=== PATIENT | female | born 1975 | race Caucasian/White ===

== ENCOUNTER → 2021-01-07 | Outpatient (CLI) | payer MEDICAID ==
--- NOTE | 2021-01-08 11:39 | MM ---
Reason for exam: screening (asymptomatic). Last mammogram was performed 6 years and 6 months ago. History: Patient has history of other cancer at age 45. Family history of breast cancer in maternal grandmother at age 72. Reductions of both breasts, 2015. Physical Findings: A clinical breast exam by your physician is recommended on an annual basis and results should be correlated with mammographic findings. MG 3D Screening Mammo W/Cad Bilateral CC and MLO view(s) were taken. Prior study comparison: July 07, 2014, mammogram, performed at [facility]. July 02, 2014, mammogram, performed at [facility]. The breast tissue is heterogeneously dense. This may lower the sensitivity of mammography. No significant changes when compared with prior studies. ASSESSMENT: Benign, BI-RAD 2 RECOMMENDATION: Routine screening mammogram of both breasts in 1 year.
== END | disposition home or self-care (01) ==
LOC: RADMAMWWP 15:07
PROVIDERS: ATTEND Family Medicine
DX: Z12.31 Encounter for screening mammogram for malignant neoplasm of breast (principal); Z80.3 Family history of malignant neoplasm of breast
CPT/HCPCS: 77063; 77067

== ENCOUNTER → 2021-06-17 | Outpatient (CLI) | payer MEDICAID ==
--- NOTE | 2021-06-17 20:50 | CONS ---
CONSULTATION DATE OF SERVICE: 06/17/2021 This 46-year-old lady has been evaluated in the sleep center for possible obstructive sleep apnea-hypopnea syndrome. HISTORY OF PRESENT ILLNESS/SLEEP-WAKE EVALUATION: Patient's usual sleep schedule is from 9 p.m. until 5 or 5:20 a.m. on weekdays and on weekends from 10 or 11 p.m. until 7 or 8 a.m. No problems with falling asleep, although patient has a TV set in the bedroom. She usually sleeps on the back position. According to her , she has loud snoring and witnessed episodes of stopped breathing during sleep. She grinds her teeth, wakes up with a dry mouth, heartburn, restless legs, sweating, up to 3 times and with one episode of nocturia. No history of hypnagogic hallucinations, sleep paralysis or cataplexy. In the morning the patient wakes up tired, has problems with concentration, irritability, sexual dysfunction. [place] Sleepiness Scale is 8. Usually the patient does not take any naps. PAST MEDICAL HISTORY: Positive for acid reflux, nasal septum deviation, possibly nasal polyps, heart murmur in childhood. PAST SURGICAL HISTORY: Two C-sections, breast reduction surgery. MEDICATIONS: Vitamins, ibuprofen. SOCIAL HISTORY: Quit smoking 16 years ago. Alcohol consumption occasional. FAMILY HISTORY: Hypertension, cancer, narcolepsy. REVIEW OF SYSTEMS: Multiple awakenings from sleep. No fevers. No double vision. No recent chest pain. No shortness of breath. No abdominal pain. No bleeding episodes. No blood in the urine. No seizure episodes. PHYSICAL EXAMINATION: GENERAL: Pleasant lady without distress. VITAL SIGNS: BP 133/88, HR 79, RR 16, height 5 feet 3-1/2 inches, weight 209.4 pounds, body mass index 36.4, temperature , oxygen saturation at room air 98%. HEENT: PERRLA, EOMI, evaluation of oropharynx showed tongue protrudes midline. Extremely low position of soft palate; Mallampati IV. NECK: Supple, no JVD. Thyroid is not palpable. Neck is wide, 16-3/4 inches in circumference. LUNGS: Clear to percussion and to auscultation. Good air exchange. No wheezing or rhonchi. HEART: S1, S2 regular. No murmurs, gallops, or rubs. ABDOMEN: Obese. EXTREMITIES: No clubbing or cyanosis. WIRELESS TELEGRAPHER: Awake, alert, and oriented X3. Cranial nerves 2 to 7 intact. There is no fasciculation or atrophy. noted. No focal deficits observed. IMPRESSION: 1. Loud snoring, witnessed episodes of stopped breathing during sleep, extremely low position of soft palate, Mallampati IV, wide neck, 16-3/4 inches in circumference; obstructive sleep apnea-hypopnea syndrome. 2. Obesity. BMI 36.4. 3. Acid reflux. 4. History of nasal polyps. 5. History of nasal septum deviation. 6. History of heart murmur in childhood. 7. Status post two sections. 8. Status post breast reduction surgery. PLAN: 1. Polysomnography for evaluation of patient's breathing during sleep. 2. CPAP/BiPAP titration if sleep study confirms obstructive sleep apnea-hypopnea syndrome. 3. Preferable position during sleep on the side. 4. No driving if patient feels any sleepiness. 5. I will see patient for follow up visit to explain results of testing and following plan. Thank you very much for referring this patient for consultation. Sincerely, Harry Sanchez MD, PhD, FAASM Diplomat of [employer] Sleep Medicine Board of [employer] Feather Edger of [facility] [place] MMODL / OKSANA: [id number] /
== END ==
LOC: SLEEP 16:04
PROVIDERS: ATTEND Internal Medicine
DX: G47.33 Obstructive sleep apnea (adult) (pediatric) (principal); E66.9 Obesity, unspecified; K21.9 Gastro-esophageal reflux disease without esophagitis; Z87.09 Personal history of other diseases of the respiratory system; Z86.79 Personal history of other diseases of the circulatory system; Z87.59 Personal history of other complications of pregnancy, childbirth and the puerperium; Z68.36 Body mass index [BMI] 36.0-36.9, adult; Z98.890 Other specified postprocedural states; Z87.891 Personal history of nicotine dependence
CPT/HCPCS: 99211

== ENCOUNTER → 2021-09-16 | Outpatient (CLI) | payer MEDICAID ==
--- NOTE | 2021-09-16 16:41 | SFUN ---
SLEEP CENTER FOLLOW UP NOTE DATE OF SERVICE: 09/16/2021 This 46-year-old lady has been followed in Sleep Center for treatment of obstructive sleep apnea-hypopnea syndrome. Recently the patient had a polysomnogram which showed severe obstructive sleep apnea- hypopnea syndrome with severe oxygen desaturation. Then she had CPAP titration and subsequently received her CPAP unit. Today is her first visit after she was started on treatment with CPAP. The patient is able to use her CPAP equipment every night. She sleeps better with the machine, feels better during the day. [place] Sleepiness Scale today is 4, which is normal. I checked her CPAP unit. It is in automatic regimen. Range of the pressure is 5 to 10, average pressure 10 cm of water. Usage is 100% of nights and 28/30 nights for more than 4 hours. Average usage 7 hours 15 minutes, which is great compliance. Leak is 0.5 L/minute, maximum 4.5 L/minute, which is in very good range. Apnea-hypopnea index is still increased at 18.2. MEDICATIONS: Vitamins, Motrin. PHYSICAL EXAMINATION: GENERAL: Pleasant patient in no distress. VITAL SIGNS: BP 144/61, HR 82, RR 16, weight 208, temperature 98.2, oxygen saturation at room air 98%. HEENT: PERRLA, EOMI, evaluation of oropharynx showed tongue protrudes midline. Extremely low position of soft palate; Mallampati IV. NECK: Supple, no JVD. Thyroid is not palpable. LUNGS: Clear to percussion and to auscultation. Good air exchange. No wheezing or rhonchi. HEART: S1, S2 regular. No murmurs, gallops, or rubs. ABDOMEN: Obese. EXTREMITIES: No clubbing or cyanosis. PROFESSIONAL SERVICES MANAGER: Awake, alert, and oriented X3. Cranial nerves 2 to 7 intact. There is no fasciculation or atrophy. noted. No focal deficits observed. IMPRESSION: 1. Severe obstructive sleep apnea-hypopnea syndrome; apnea-hypopnea index 50.5 with oxygen desaturation to 77%. Patient demonstrated good compliance with treatment. Respiration improved on CPAP, but not normalized. Present apnea-hypopnea index 18.2. 2. Obesity. 3. Acid reflux. 4. History of nasal polyps. 5. History of nasal septum deviation. 6. History of heart murmur in childhood. 7. Status post C-sections x2. 8. Status post breast reduction surgery. PLAN: 1. I changed the pressure in the machine to the range of pressure 5 to 15 cm of water. 2. I discussed with the patient some details related to position of the machine, position of the tube, adjustments of humidification. 3. Losing weight. 4. Sleep hygiene with regular time in bed for 7-1/2 to 8 hours. 5. No driving if feeling any sleepiness. 6. Follow-up visit in 2 or 3 months to evaluate clinical response after pressure was adjusted. Thank you very much for allowing me to participate in the management of your patient. Sincerely, Harry Sanchez MD, PhD, FAASM Diplomat of [employer] Sleep Medicine Board of [employer] Medicine Flame Brazing Machine Operator of [facility] [place] MMZINAL / OKSANA: [id number] /
== END ==
LOC: SLEEP 14:15
PROVIDERS: ATTEND Internal Medicine
DX: G47.33 Obstructive sleep apnea (adult) (pediatric) (principal); G47.36 Sleep related hypoventilation in conditions classified elsewhere; E66.9 Obesity, unspecified; K21.9 Gastro-esophageal reflux disease without esophagitis; Z99.89 Dependence on other enabling machines and devices; Z87.59 Personal history of other complications of pregnancy, childbirth and the puerperium; Z86.79 Personal history of other diseases of the circulatory system; Z87.09 Personal history of other diseases of the respiratory system; Z87.891 Personal history of nicotine dependence

== ENCOUNTER → 2021-11-10 | Outpatient (CLI) | payer MEDICAID ==
--- NOTE | 2021-11-11 14:42 | SFUN ---
SLEEP CENTER FOLLOW UP NOTE DATE OF SERVICE: 11/10/2021 This 46-year-old lady has been followed in Sleep Center for treatment of obstructive sleep apnea-hypopnea syndrome. The patient continues to use her CPAP equipment every night for the whole night. During her previous visit, because apnea-hypopnea index was significantly increased to 18.2, I changed the regimen of pressure in the machine from 5-10 to 5-15 cm of water. I checked the CPAP unit. Usage is 100% of nights, average 7 hours 8 minutes. Range of the pressure is 5-15 cm of water, average pressure 14.8 cm of water, close to maximum. Apnea-hypopnea index was reduced to 12.9, but still above normal range. Leak is only 1.9 L/minute. [place] Sleepiness Scale is 6. MEDICATIONS: Vitamins, Motrin as needed. PHYSICAL EXAMINATION: GENERAL: Pleasant patient in no distress. VITAL SIGNS: BP 125/82, HR 75, RR 16, weight 212 pounds, temperature 97.1, oxygen saturation at room air 97%. HEENT: PERRLA, EOMI, evaluation of oropharynx showed tongue protrudes midline. Extremely low position of soft palate; Mallampati IV. NECK: Supple, no JVD. Thyroid is not palpable. LUNGS: Clear to percussion and to auscultation. Good air exchange. No wheezing or rhonchi. HEART: S1, S2 regular. No murmurs, gallops, or rubs. ABDOMEN: Soft and nontender. Bowel sounds are present. No organomegaly appreciated. EXTREMITIES: No clubbing or cyanosis. HR INTERNSHIP: Awake, alert, and oriented X3. Cranial nerves 2 to 7 intact. There is no fasciculation or atrophy. noted. No focal deficits observed. IMPRESSION: 1. Severe obstructive sleep apnea-hypopnea syndrome; apnea-hypopnea index 50.5. The patient demonstrated 100% compliance with treatment. Respiration improved after pressure was increased, but still above normal range. 2. Obesity. 3. Acid reflux. 4. History of nasal polyps. 5. History of nasal septum deviation. 6. History of heart murmur in childhood. 7. Status post x2. 8. Status post breast reduction surgery. PLAN: 1. I changed pressure to the range 5-20 cm of water. 2. Patient will continue to use PAP equipment every night for the whole night. 3. Sleep hygiene with regular time in bed for at least 7-1/2 to 8 hours. 4. Precautions related to driving. No driving if feeling sleepiness. 5. I will maintain all necessary prescription for PAP supplies including mask, tube, filters. 6. Watching weight. 7. Follow-up visit in 2 months or earlier if patient has any problems. Thank you very much for allowing me to participate in the management of your patient. Sincerely, Harry Sanchez MD, PhD, FAASM Diplomat of [place] [employer] Sleep Medicine Board of [place] [employer] Medicine Lease Out Man of [facility] [place] MMODL / [place]AN: [id number] /
== END ==
LOC: SLEEP 16:19
PROVIDERS: ATTEND Internal Medicine
DX: G47.33 Obstructive sleep apnea (adult) (pediatric) (principal); E66.9 Obesity, unspecified; K21.9 Gastro-esophageal reflux disease without esophagitis; Z87.09 Personal history of other diseases of the respiratory system; Z86.79 Personal history of other diseases of the circulatory system; Z98.890 Other specified postprocedural states; Z99.89 Dependence on other enabling machines and devices; Z87.891 Personal history of nicotine dependence

== ENCOUNTER → 2022-01-18 | Outpatient (CLI) | payer MEDICAID ==
--- NOTE | 2022-01-18 16:42 | US ---
EXAMINATION TYPE: US venous doppler duplex LE LT DATE OF EXAM: 01/18/2022 4:27 PM COMPARISON: NONE CLINICAL HISTORY: R22.42 SWELLING LT LOWER LIMB. Swelling left leg SIDE PERFORMED: Left TECHNIQUE: The lower extremity deep venous system is examined utilizing real time linear array sonog tonio with graded compression, doppler sonography and color-flow sonography. VESSELS IMAGED: Common Femoral Vein Deep Femoral Vein Greater Saphenous Vein * Femoral Vein Popliteal Vein Small Saphenous Vein * Proximal Calf Veins (* superficial vessels) Left Leg: Negative for DVT Attempted to call office with results at time of exam, no answer IMPRESSION: Negative exam. No evidence of deep vein thrombosis in the left leg.
== END | disposition home or self-care (01) ==
LOC: RADUSWWP 16:10
PROVIDERS: ATTEND Family Medicine
DX: R22.42 Localized swelling, mass and lump, left lower limb (principal)

== ENCOUNTER → 2022-02-02 | Outpatient (CLI) | payer MEDICAID ==
--- NOTE | 2022-02-02 16:20 | P.PN ---
Subjective DATE: 02/02/2022 FOLLOW UP VISIT. Patient with obstructive sleep apnea hypopnea syndrome return to sleep center for follow-up visit. Information from previous visit have been reviewed. Patient is using PAP equipment every night for the whole night, getting PAP supplies in time. The patient does not have significant problems with the mask, PAP unit and humidification. [place] sleepiness scale is 5, which is normal. I checked information from PAP unit. PAP unit pressure 5-15, average 11.9 cm H2O. Usage is 100 % for more then 4 hours, average 7.6 hours per night. Leak is 2.5 l/m, which is in acceptable range. Apnea Hypopnea Index is 2.1, which is normal. MEDICATIONS:1. Vitamins 2. Probiotic 3. Motrin as needed During physical exam: GENERAL: A pleasant patient without any distress. VITAL SIGNS: BP 129/68, HR 74, RR 16, weight 217.4, temperature 97.4, oxygen saturation at room air 99 % . HEENT: PERRLA, EOMI.low position of soft palate, Mallapati 4 . NECK: Supple. No JVD. LUNGS: Clear to percussion and to auscultation. Good air exchange. No wheezing or rhonchi. HEART: S1, S2 regular. ABDOMEN: Soft and nontender. Slightly obese EXTREMITIES: No clubbing or cyanosis. BLOW MOLD TECHNICIAN: Awake, alert, and oriented x3. No focal deficit. Impressions: 1. Obstructive sleep apnea-hypopnea syndrome. Patient demonstrated great compliance with treatment, benefiting from treatment. After correction of pressure during previous visit and using different type of mask respiration is totally normal on CPAP. 2. Obesity. 3. Acid reflux. 4. History of nasal polyps. 5. History of nasal septum deviation. 6. History of heart murmur in childhood. 7. Status post 2. 8. Status post breast reduction surgery. Plan: 1. Continue using PAP equipment every night for the whole night. 2. To change air filter at least 1-2 times per month. 3. PAP unit should stay lower then position of the head. 4. Advised patient to remove all remaining water from humidifier canister daily and make it dry after each usage. Refill canister with fresh distilled water before each usage. 5. Sleep hygiene with regular time in bed for at least 8 hours. 6. Precautions related to driving. No driving if feel any sleepiness. 7. I will maintain prescription for PAP supplies including mask, tube, filters. 8. Follow up visit in 6 months or earlier if patient has any problems. 9. Watching weight. Thank you very much for allowing me to participate in the management of your patient. Harry Sanchez MD, PhD, FAASM. Diplomat of [employer], Sleep Medicine Board by [employer] Internal [employer] Publications Production Supervisor of [facility] [place]
== END ==
LOC: SLEEP 15:55
PROVIDERS: ATTEND Internal Medicine
DX: G47.33 Obstructive sleep apnea (adult) (pediatric) (principal); E66.9 Obesity, unspecified; K21.9 Gastro-esophageal reflux disease without esophagitis; Z99.89 Dependence on other enabling machines and devices; Z86.79 Personal history of other diseases of the circulatory system; Z98.890 Other specified postprocedural states; Z87.59 Personal history of other complications of pregnancy, childbirth and the puerperium; Z87.09 Personal history of other diseases of the respiratory system; Z87.891 Personal history of nicotine dependence
CPT/HCPCS: 99212

== ENCOUNTER → 2022-10-13 | Outpatient (CLI) | payer MEDICAID ==
--- NOTE | 2022-10-13 16:53 | P.PN ---
Subjective DATE: 10/13/2022 FOLLOW UP VISIT. Patient with obstructive sleep apnea hypopnea syndrome return to sleep center for follow-up visit. Information from previous visit have been reviewed. Patient is using PAP equipment every night for the whole night, getting PAP supplies in time. The patient does not have significant problems with the mask, PAP unit and humidification. [place] sleepiness scale is 5, which is normal. I checked information from PAP unit and explaining to the patient in details. PAP unit pressure 5-15, average 10.1 cm H2O. Usage is 100 % for more then 4 hours, average 7.7 hours per night. Leak is 0.4 l/m, which is in acceptable range. Apnea Hypopnea Index is 2.4, which is normal. MEDICATIONS: None During physical exam: GENERAL: A pleasant patient without any distress. VITAL SIGNS: BP 136/82, HR 92, RR 12, weight 206.4, temperature 97.2, oxygen saturation at room air 96 % . HEENT: PERRLA, EOMI.low position of soft palate, Mallapati 4 . NECK: Supple. No JVD. LUNGS: Clear to percussion and to auscultation. Good air exchange. No wheezing or rhonchi. HEART: S1, S2 regular. ABDOMEN: Soft and nontender.[] EXTREMITIES: No clubbing or cyanosis. PLANER MILL GRADER: Awake, alert, and oriented x3. No focal deficit. Impressions: 1. Obstructive sleep apnea-hypopnea syndrome. Patient demonstrated great compliance with treatment, benefiting from treatment. 2. Mild obesity, body mass and 35.6, patient lost 11 pounds since previous visit. 3. Acid reflux. 4. History of nasal polyps. 5. History of nasal septum deviation. 6. Status post started to. 7. History of heart murmur in childhood. 8. Status post breast reduction surgery. Plan: 1. Continue using PAP equipment every night for the whole night. 2. To change air filter at least 1-2 times per month. 3. PAP unit should stay lower then position of the head. 4. Advised patient to remove all remaining water from humidifier canister daily and make it dry after each usage. Refill canister with fresh distilled water before each usage. 5. Sleep hygiene with regular time in bed for at least 8 hours. 6. Precautions related to driving. No driving if feel any sleepiness. 7. I will maintain prescription for PAP supplies including mask, tube, filters. 8. Watching weight. 9. Follow up visit in 6 months or earlier if patient has any problems. Thank you very much for allowing me to participate in the management of your patient. Harry Sanchez MD, PhD, FAASM. Diplomat of [place] [employer] Sleep Medicine, Sleep Medicine Board by [place] [employer] Lead Game Designer of [facility] [place]
== END ==
LOC: SLEEP 16:34
PROVIDERS: ATTEND Internal Medicine
DX: G47.33 Obstructive sleep apnea (adult) (pediatric) (principal); E66.9 Obesity, unspecified; K21.9 Gastro-esophageal reflux disease without esophagitis; Z98.890 Other specified postprocedural states; Z68.35 Body mass index [BMI] 35.0-35.9, adult; Z99.89 Dependence on other enabling machines and devices; Z87.891 Personal history of nicotine dependence
CPT/HCPCS: 99212

== ENCOUNTER → 2022-10-13 | Outpatient (CLI) | payer MEDICAID ==
--- NOTE | 2022-10-14 08:29 | MM ---
Reason for Exam: Screening (asymptomatic). Last mammogram was performed 1 year(s) and 9 month(s) ago. Patient History: Menarche at age 11. First Full-Term at age 27. Other cancer, age 45. 2015, Bilateral Reduction. Maternal grandmother had breast cancer, age 72. Risk Values: Malia 5 year model risk: 1.0%. NCI Lifetime model risk: 10.2%. Prior Study Comparison: 07/02/2014 Screening Mammogram, [facility]. 07/07/2014 Screening Mammogram, [facility]. 01/07/2021 Bilateral Screening Mammogram, [facility]. Tissue Density: The breast tissue is heterogeneously dense. This may lower the sensitivity of mammography. Findings: Analyzed By CAD. Asymmetric prominent tissue upper aspect left breast is unchanged from prior studies. There is no suspicious group of microcalcifications or new suspicious mass in either breast.Asymmetric prominent tissue upper aspect left breast is unchanged from prior studies. Benign-appearing bilateral axillary lymph nodes are redemonstrated. There is no suspicious group of microcalcifications or new suspicious mass in either breast. Overall Assessment: Negative, BI-RAD 1 Management: Screening Mammogram of both breasts in 1 year. . Patient should continue monthly self-breast exams. A clinical breast exam by your physician is recommended on an annual basis. This exam should not preclude additional follow-up of suspicious palpable abnormalities. Note on Malia scores and lifetime risk: 1. A Malia score greater than 3% is considered moderate risk. If this is the case, consider specialist referral to assess eligibility for a risk reducing agent. 2. If overall lifetime risk for the development of breast cancer is 20% or higher, the patient may qualify for future screening with alternating mammogram and breast MRI. Electronically signed and approved by: Calin Shields M.D.
== END | disposition home or self-care (01) ==
LOC: RADMAMWWP 15:55
PROVIDERS: ATTEND Family Medicine
DX: Z12.31 Encounter for screening mammogram for malignant neoplasm of breast (principal); Z80.3 Family history of malignant neoplasm of breast
CPT/HCPCS: 77063; 77067

== ENCOUNTER 2022-12-07 09:52 | Day surgery (SDC) | payer MEDICAID ==
[~2022-12-07 09:52] MED LIST: LACTATED RINGERS 1,000 ML IV SCH
[2022-12-07 10:16] VITALS: TEMP 97.7
[2022-12-07] MEDS ORDERED: LACTATED RINGERS 1,000 ML IV ONE (10:17)
[2022-12-07] MEDS ORDERED: PROPOFOL 10 MG/ML 20 ML VIAL IV ONE (11:17)
--- NOTE | 2022-12-07 11:39 | P.PCN ---
Date of Procedure: 12/07/22 Procedure(s) Performed: BRIEF HISTORY: Patient is a 47-year-old pleasant white female scheduled for an elective colonoscopy as a part of screening for colon cancer. PROCEDURE PERFORMED: Colonoscopy with snare polyp rectum. PREOPERATIVE DIAGNOSIS: Screening for colon cancer. IV sedation per Anesthesia. PROCEDURE: After informed consent was obtained, the patient, was brought into the endoscopy unit. IV sedation was administered by Anesthesia under continuous monitoring. Digital rectal examination was normal. Initially the Olympus CF-160 flexible video colonoscope was then inserted in the rectum, gradually advanced into the cecum without any difficulty. Careful examination was performed as the scope was gradually being withdrawn. Ileocecal valve and the appendiceal orifice were visualized and appeared normal. Prep was excellent. Mucosa of the cecum, ascending colon, appeared normal. In the distal transverse colon there was a 1 cm flat polyp removed by snare polypectomy. In the descending colon there was a 2 cm broad-based polyp removed by snare polypectomy. Rest of the transverse c olon, descending colon, sigmoid colon, and rectum appeared normal. In the rectum there was a 3 mm polyp at this posterior polypectomy Retroflexion was performed in the rectum and no lesions were seen. The patient tolerated the procedure well. IMPRESSION: 1 cm flat transverse colon polyp status post polypectomy 2 cm broad-based distal descending colon polyp status post polypectomy 3 mm rectal polyp status post snare polypectomy RECOMMENDATIONS: Findings of this examination were discussed with the patient as well as a family. She was advised to follow with the biopsy results. If the biopsy results adenoma she can have a repeat colonoscopy in 3 years..
[2022-12-07 11:43] VITALS: BP 109/75; PULSE 72; RESP 16
== END 2022-12-07 12:18 | disposition home or self-care (01) ==
LOC: ORWHC2ENDO 09:52
PROVIDERS: ATTEND Internal Medicine Gastroenterology
DX: Z12.11 Encounter for screening for malignant neoplasm of colon (principal); K21.9 Gastro-esophageal reflux disease without esophagitis; Z79.899 Other long term (current) drug therapy
CPT/HCPCS: 81025; 45385; J2704; 88305

== ENCOUNTER → 2023-03-01 | Outpatient (CLI) | payer MEDICAID ==
--- NOTE | 2023-03-02 10:01 | CT ---
EXAMINATION TYPE: CT heart w calcium score DATE OF EXAM: 03/01/2023 COMPARISON: HISTORY: Screening for cardiovascular disorder. 213.9 CT DLP: 91.7 mGycm Automated exposure control for dose reduction was used. CT CALCIUM SCORING Coronary calcium is a marker for plaque (fatty deposits) in a blood vessel or atherosclerosis (harden ing of the arteries). The presence and amount of calcium detected in a coronary artery by the CT sca n, indicates the presence and amount of atherosclerotic plaque. These calcium deposits appear years before the development of heart disease symptoms such as chest pain and shortness of breath. A calcium score is computed for each of the coronary arteries based upon the volume and density of th e calcium deposits. This can be referred to as your calcified plaque burden. It does not correspond directly to the percentage of narrowing in the artery but does correlate with the severity of the un derlying coronary atherosclerosis. PROCEDURE TECHNIQUE - Prospective Gating was used. Slice thickness: 3mm. Density threshold (HU): 130, Pixel threshold: 3, Algorithm: discrete. 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 Small hiatal hernia. Heart is enlarged. IMPRESSION: Calcium Score: 14.87 Implication: Definite, at least mild atherosclerotic plaque Risk of Coronary Artery Disease: Mild or minimal risk of coronary artery disease. CALCIUM SCORE IMPLICATION RISK OF C ORONARY ARTERY DISEASE 0 No identifiable plaque Very low, generally less than 5% 1-10 Minimal identifiable plaque Very unlikely, less than 10% 11-100 Definite, at least mild atherosclerotic plaque Mild or m inimal coronary narrowings likely 101-400 Definite, at least moderate atherosclerotic plaque Mild coronary ar yaneth disease highly likely, significant narrowing possible 401 or Higher Extensive atherosclerotic plaque High lik elihood of at least one significant coronary narrowing
== END | disposition home or self-care (01) ==
LOC: RADCTMAIN 15:13
PROVIDERS: ATTEND Family Medicine
DX: Z13.6 Encounter for screening for cardiovascular disorders (principal); I25.10 Atherosclerotic heart disease of native coronary artery without angina pectoris
CPT/HCPCS: 75571

== ENCOUNTER → 2023-04-26 | Outpatient (CLI) | payer MEDICAID ==
--- NOTE | 2023-04-26 16:58 | P.PN ---
Subjective DATE: 04/26/2023 FOLLOW UP VISIT. Patient with obstructive sleep apnea hypopnea syndrome return to sleep center for follow-up visit. Information from previous visit have been reviewed. Patient is using PAP equipment every night for the whole night, getting PAP supplies in time. The patient does not have significant problems with the mask, PAP unit and humidification. Higgins sleepiness scale is 7, which is normal . I checked information from PAP unit and discussed it with patient in details. PAP unit pressure 5-15, average 10.1cm H2O. Usage is 100 % for more then 4 hours, average 8 hours per night. Leak is perfect 0 l/m. Apnea Hypopnea Index is 2.7, which is normal. MEDICATIONS:1. Presently on antibiotic, patient doesn't remember the name During physical exam: GENERAL: A pleasant patient without any distress. VITAL SIGNS: BP144/84, HR 107, RR 18 , weight 214.0, temperature 97.9, oxygen saturation at room air 97 % . HEENT: PERRLA, EOMI.low position of soft palate, Mallapati[] . NECK: Supple. No JVD. LUNGS: Clear to percussion and to auscultation. Good air exchange. No wheezing or rhonchi. HEART: S1, S2 regular. ABDOMEN: Soft and nontender.[] EXTREMITIES: No clubbing or cyanosis. PURCHASING COORDINATOR: Awake, alert, and oriented x3. No focal deficit. Impressions: 1. Obstructive sleep apnea-hypopnea syndrome. Patient demonstrated great compliance with treatment, benefiting from treatment. 2. Mild obesity, patient increased weight of 8 pounds since previous visit . 3. Acid reflux . 4. History of nasal polyps . 5. History of nasal septum deviation . 6. History of heart murmur in childhood . 7. Status post . Plan: 1. Continue using PAP equipment every night for the whole night. 2. To change air filter at least 1-2 times per month. 3. PAP unit should stay lower then position of the head. 4. Advised patient to remove all remaining water from humidifier canister daily and make it dry after each usage. Refill canister with fresh distilled water before each usage. 5. Sleep hygiene with regular time in bed for at least 8 hours. 6. Precautions related to driving. No driving if feel any sleepiness. 7. I will maintain prescription for PAP supplies including mask, tube, filters. 8. Follow up visit in 6 months or earlier if patient has any problems. 9. Watching and losing weight. Thank you very much for allowing me to participate in the management of your patient. Harry Sanchez MD, PhD, FAASM. Diplomat of [place] [employer], Sleep Medicine Board by [employer] Adobe Flex Developer of [facility] [place]
== END ==
LOC: 3 N SLEEP 16:10
PROVIDERS: ATTEND Internal Medicine
DX: G47.33 Obstructive sleep apnea (adult) (pediatric) (principal); E66.9 Obesity, unspecified; K21.9 Gastro-esophageal reflux disease without esophagitis; Z99.89 Dependence on other enabling machines and devices; Z98.890 Other specified postprocedural states; Z86.79 Personal history of other diseases of the circulatory system; Z85.22 Personal history of malignant neoplasm of nasal cavities, middle ear, and accessory sinuses; Z87.891 Personal history of nicotine dependence
CPT/HCPCS: 99212

== ENCOUNTER → 2023-11-29 | Outpatient (CLI) | payer MEDICAID ==
[2023-11-29 17:05] VITALS: BP 112/77; PULSE 92; RESP 16; TEMP 97.8
--- NOTE | 2023-11-29 17:16 | P.PROGSL ---
Subjective DATE: 11/29/2023 FOLLOW UP VISIT. Patient with obstructive sleep apnea hypopnea syndrome return to sleep center for follow-up visit. Information from previous visit have been reviewed. Patient is using PAP equipment every night for the whole night, getting PAP supplies in time. The patient does not have significant problems with the mask, PAP unit and humidification. Roscoe sleepiness scale is increased to 12. I checked information from PAP unit. PAP unit pressure 5-15, average 10.1 cm H2O. Usage is 100% for more then 4 hours, average 7.5 hours per night. Leak is 0 l/m, which is perfect. Apnea Hypopnea Index is 1.9, which is normal. MEDICATIONS: Vitamin D3 During physical exam: GENERAL: A pleasant patient without any distress. VITAL SIGNS: Please see below. HEENT: PERRLA, EOMI.low position of soft palate. NECK: Supple. No JVD. LUNGS: Clear to percussion and to auscultation. Good air exchange. No wheezing or rhonchi. HEART: S1, S2 regular. ABDOMEN: Soft and nontender. Slightly obese EXTREMITIES: No clubbing or cyanosis. YARN SPOOLER: Awake, alert, and oriented x3. No focal deficit. Impressions: 1. Obstructive sleep apnea-hypopnea syndrome. Patient demonstrated great compliance with treatment, benefiting from treatment. 2. Obesity, BMI 37.6. 3. Acid reflux. 4. History of nasal septal deviation. 5. History of nasal polyps. 6. Status post . 7. History of heart murmur in childhood. Plan: 1. Continue using PAP equipment every night for the whole night. 2. To change air filter at least 1-2 times per month. 3. PAP unit should stay lower then position of the head. 4. Advised patient to remove all remaining water from humidifier canister daily and make it dry after each usage. Refill canister with fresh distilled water before each usage. 5. Sleep hygiene with regular time in bed for at least 8 hours. 6. Precautions related to driving. No driving if feel any sleepiness. 7. I will maintain prescription for PAP supplies including mask, tube, filters. 8. Watching and losing weight. 9. Follow up visit in 6 months or earlier if patient has any problems. Thank you very much for allowing me to participate in the management of your patient. Harry Sanchez MD, PhD, FAASM. Diplomat of [employer], Sleep Medicine Board by [employer] Referral Agent of [facility] [place] Objective - Vital Signs Vital Signs: Vital Signs Temp 97.8 F 11/29/23 17:04 Pulse 92 11/29/23 17:04 Resp 16 11/29/23 17:04 BP 112/77 11/29/23 17:04 Pulse Ox 97 11/29/23 17:04 FiO2 Intake & Output 11/28/23 11/29/23 11/29/23 18:59 06:59 18:59 Weight 97.069 kg Home Medications: Home Medications Medication Instructions Recorded Confirmed Type No Known Home Medications 12/02/22 12/07/22 History
== END ==
LOC: 3 N SLEEP 16:39
PROVIDERS: ATTEND Internal Medicine
DX: G47.33 Obstructive sleep apnea (adult) (pediatric) (principal); E66.9 Obesity, unspecified; K21.9 Gastro-esophageal reflux disease without esophagitis; Z68.37 Body mass index [BMI] 37.0-37.9, adult; Z98.890 Other specified postprocedural states; Z86.79 Personal history of other diseases of the circulatory system; Z99.89 Dependence on other enabling machines and devices; Z87.891 Personal history of nicotine dependence
CPT/HCPCS: 99212

== ENCOUNTER → 2024-08-16 | Outpatient (CLI) | payer MEDICAID ==
--- NOTE | 2024-08-19 08:15 | MM ---
Reason for Exam: Screening (asymptomatic). Last mammogram was performed 1 year(s) and 10 month(s) ago. Patient History: Menarche at age 11. First Full-Term at age 27. Other cancer, age 45. 2015, Bilateral Reduction. Maternal grandmother had breast cancer, age 72. Risk Values: Malia 5 year model risk: 1.1%. NCI Lifetime model risk: 9.9%. Prior Study Comparison: 07/07/2014 Screening Mammogram, [facility] . 01/07/2021 Bilateral Screening Mammogram, [facility]. 10/13/2022 Bilateral MG 3D screening mammo w/cad, [facility]. Tissue Density: There are scattered areas of fibroglandular density. Findings: Analyzed By CAD. Unchanged bilateral areas of asymmetric density. There is no suspicious group of microcalcifications or new suspicious mass in either breast. Overall Assessment: Benign, BI-RAD 2 Management: Screening Mammogram of both breasts in 1 year. Patient should continue monthly self-breast exams. A clinical breast exam by your physician is recommended on an annual basis. This exam should not preclude additional follow-up of suspicious palpable abnormalities. Note on Malia scores and lifetime risk: 1. A Malia score greater than 3% is considered moderate risk. If this is the case, consider specialist referral to assess eligibility for a risk reducing agent. 2. If overall lifetime risk for the development of breast cancer is 20% or higher, the patient may qualify for future screening with alternating mammogram and breast MRI. [facility], , 08/19/2024 8:12 AM. Electronically signed and approved by: Richard Ritter M.D. Radiologist
== END | disposition home or self-care (01) ==
LOC: RADMAMWWP 15:14
PROVIDERS: ATTEND Family Medicine
DX: Z12.31 Encounter for screening mammogram for malignant neoplasm of breast (principal); R92.323 Mammographic fibroglandular density, bilateral breasts; Z80.3 Family history of malignant neoplasm of breast
CPT/HCPCS: 77063; 77067